=== PATIENT | female | born 2000 | race African-American/Black ===

== ENCOUNTER 2022-10-12 06:29 | Emergency (ER) | payer SELFPAY ==
[2022-10-12] MEDS ORDERED: Lidocaine 1% w/Epinephrine 1:100K 30 ML VIAL ONE (06:55)
[2022-10-12] MEDS ORDERED: Bacitracin 1 PK ONE (07:14)
[2022-10-12] MEDS ORDERED: Boostrix 0.5 ML (Tdap) VIAL (>/=7 yrs of age) ONE (07:14)
== END 2022-10-12 07:45 | disposition home or self-care (01) ==
LOC: MADERS 06:29
DX: S01.112A Laceration without foreign body of left eyelid and periocular area, initial encounter (principal); F17.210 Nicotine dependence, cigarettes, uncomplicated; Y04.0XXA Assault by unarmed brawl or fight, initial encounter; Z23 Encounter for immunization
CPT/HCPCS: 12011; 90471; 90715